=== PATIENT | male | born 1995 ===

== ENCOUNTER 2025-08-14 16:48 | Emergency (ER) | payer OTHER ==
[~2025-08-14] VITALS: Ht 172.7 cm; Wt 72.6 kg
[~2025-08-14 16:48] MED LIST: AZIT200SU PO
[2025-08-14] MEDS ORDERED: FentaNYL Citrate 50 MCG/ML 2 ML Injection IV ONE (18:50)
[2025-08-14 20:10] LABS: Source, Urine Clean Catch
[2025-08-14 20:27] LABS: Bilirubin, Urine Neg (Neg); Glucose Qualitative, Urine Neg (Neg); Ketones, Urine Neg (Neg); Leukocyte Esterase, Urine Neg (Neg); Protein, Urine Neg (Neg); Specific Gravity, Urine 1.015 (1.003-1.022); Urobilinogen, Urine 1+ (Normal)
[2025-08-14 20:39] LABS: Color, Urine Yellow (P-Yellow); Red Blood Cells, Urine Not Seen /hpf (0-2); White Blood Cells, Urine 0-2 /hpf (0-5)
[2025-08-14] MEDS ORDERED: RX Prepack 6 Tabs Oxycodone 5mg UD ONE (20:50)
== END 2025-08-14 21:05 | disposition home or self-care (01) ==
LOC: ER 16:48
PROVIDERS: Physician Assistant
DX: K40.90 Unilateral inguinal hernia, without obstruction or gangrene, not specified as recurrent (principal); Z88.0 Allergy status to penicillin; Z91.013 Allergy to seafood
CPT/HCPCS: 76870; 81001; 96374; 99284-25; A9270; J3010